=== PATIENT | female | born 1995 | race Caucasian/White ===

== ENCOUNTER 2018-09-18 11:01 | Emergency (ER) | payer OTHER, MEDICAID ==
[~2018-09-18] VITALS: Ht 167.6 cm; Wt 94.8 kg
[2018-09-18 11:09] VITALS: Ht 167.6 cm; Wt 94.8 kg
[2018-09-18 12:34] LABS: BASOPHIL % 0.1 % (0-2); PLATELET COUNT 383 x10^3mcL (130-400)
[2018-09-18 12:41] LABS: CALCIUM 9.1 mg/dL (8.5-10.1); CARBON DIOXIDE 25.9 mmol/L (21-32); CHLORIDE SERUM 101 mmol/L (98-107); CREATININE SERUM 0.8 mg/dL (0.6-1.0); GFR1 > 60 mL/min; GLUCOSE SERUM 137 mg/dL (74-106); POTASSIUM SERUM 3.4 mmol/L (3.5-5.1); SODIUM SERUM 137 mmol/L (136-145)
[2018-09-18 12:47] LABS: ALBUMIN 4.2 g/dL (3.4-5.0); ALKALINE PHOSPHATASE 99 U/L (46-116); ALT/SGPT 33 U/L (14-59); AST/SGOT 19 U/L (15-37); BILIRUBIN TOTAL 0.4 mg/dL (0.20-1.00)
[2018-09-18 13:24] LABS: AMPHETAMINE QUAL UR POSITIVE (See below)
[2018-09-18 15:35] VITALS: BP 145/90
== END 2018-09-18 15:35 | disposition home or self-care (01) ==
LOC: ED 11:01
PROVIDERS: Emergency Medicine
DX: S43.084A Other dislocation of right shoulder joint, initial encounter (principal); F15.10 Other stimulant abuse, uncomplicated; X58.XXXA Exposure to other specified factors, initial encounter; Y93.89 Activity, other specified; Y92.89 Other specified places as the place of occurrence of the external cause; Y99.8 Other external cause status
CPT/HCPCS: J1885; J2405; J2800; J3010; J3490; J7050; Q0092

== ENCOUNTER 2020-11-22 00:40 | Emergency (ER) | payer MEDICAID ==
[~2020-11-22] VITALS: Ht 165.1 cm; Wt 100.7 kg
[2020-11-22 00:59] VITALS: Ht 165.1 cm; Wt 100.7 kg
[2020-11-22 05:09] VITALS: BP 122/65
== END 2020-11-22 05:09 | disposition home or self-care (01) ==
LOC: ED 00:40
DX: S53.114A Anterior dislocation of right ulnohumeral joint, initial encounter (principal); X58.XXXA Exposure to other specified factors, initial encounter; Y93.89 Activity, other specified; Y92.89 Other specified places as the place of occurrence of the external cause; Y99.8 Other external cause status
CPT/HCPCS: J3490